=== PATIENT | male | born 1955 | race Caucasian/White ===

== ENCOUNTER → 2017-11-23 | Outpatient (CLI) | payer MEDICARE, OTHER ==
[2017-11-23 12:46] LABS: Anisocytosis Slight; HCT 37.4 % (39.0-53.0); HGB 11.9 gm/dL (13.0-17.5); Hypochromasia Slight; MCH 31.8 pg (25.0-35.0); MCHC 31.9 g/dL (31.0-37.0); MCV 99.6 fL (80.0-100.0); Macrocytosis Slight; Platelet Count 196 k/uL (150-450); RBC 3.75 m/uL (4.30-5.90); RDW 17.1 % (11.5-15.5); WBC 4.5 k/uL (3.8-10.6)
[2017-11-23 13:25] LABS: Calcium 8.2 mg/dL (8.4-10.2); Potassium 4.5 mmol/L (3.5-5.1)
== END | disposition home or self-care (01) ==
LOC: LABWHC1 11:47
PROVIDERS: ATTEND Internal Medicine Clinical Cardiac Electrophysiology
DX: I48.92 Unspecified atrial flutter (principal); I45.10 Unspecified right bundle-branch block; I25.5 Ischemic cardiomyopathy
CPT/HCPCS: 36415; 80048; 85027

== ENCOUNTER 2017-12-06 13:52 | Day surgery (SDC) | payer MEDICARE, OTHER ==
[2017-11-25 15:05] VITALS: BMI 35.2
[2017-12-06] MEDS ORDERED: ceFAZolin 1,000 MG in SODIUM CHLORIDE 0.9% IRRIGATIO 250 ML IRRIGATION ONE (14:30)
[2017-12-06] MEDS ORDERED: ceFAZolin IN SWFI 2 GM/20 ML SYRINGE IVP ONE (14:35)
[2017-12-06] MEDS: SODIUM CHLORIDE 0.9% 1,000 ML IV SCH ×4 (14:40→20:11)
[2017-12-06 14:50] LABS: Glucose,Whole Blood 158 mg/dL (75-99)
[2017-12-06] MEDS ORDERED: IOPAMIDOL-370 50ML BTL INJ ONE (15:12)
[2017-12-06] MEDS ORDERED: fentaNYL (PF) 50 MCG/ML 2 ML AMP ONE (16:54)
[2017-12-06] MEDS ORDERED: PROPOFOL 10 MG/ML 20 ML VIAL IV ONE (16:54)
[2017-12-06] MEDS ORDERED: MIDAZOLAM 2 MG/2 ML VIAL ONE (16:54)
[2017-12-06] MEDS ORDERED: LIDOCAINE 1% INJ 10MG/ML (20 ML MDV) ONE (17:25)
[2017-12-06] MEDS ORDERED: LIDOCAINE 1% INJ 10MG/ML (20 ML MDV) SQ ONE ×2 (17:41→17:46)
[2017-12-06] MEDS ORDERED: ACETAMINOPHEN IV (For NPO) 1,000 MG in EMPTY BAG 1 BAG IVPB ONE (19:02)
[2017-12-06] MEDS ORDERED: ACETAMINOPHEN TAB 325 MG TAB PO PRN (19:02)
[2017-12-06] MEDS ORDERED: HYDROcodone/APAP 5-325MG 1 EACH TAB PO PRN (19:02)
--- NOTE | 2017-12-06 19:40 | CE ---
CARDIAC ELECTROPHYSIOLOGY REPORT This is a 62-year-old male patient who has severe ischemic cardiomyopathy, status post coronary artery bypass grafting for multi-vessel coronary artery disease, old ID, hypertension, right bundle branch block, permanent atrial fibrillation, dyslipidemia and chronic kidney disease, on dialysis with failed screening test for subcutaneous ICD and was brought in for a right-sided ICD implant since he has a functioning AV fistula for dialysis in the left arm. The patient was brought to the EP lab in a fasting state. Written informed consent was obtained prior to the procedure. The right pectoral area was prepped and draped as per protocol. Lidocaine 1% was used for local anesthesia. A 4 cm incision was made parallel to the deltopectoral groove, about 1.5 cm medial to it. The incision was carried down to the level of the pectoralis muscle. A subfascial pocket was made. Hemostasis was assured. The right axillary vein was accessed at a single point, and via appropriate-sized introducer sheath, a Medtronic ICD lead was positioned. This was an model number 6935, 55 cm in length and serial number [id number]. It was implanted in the RV apex. R-waves 7 mV. Pacing impedance 960 ohms. Pacing threshold 0.8 V at 0.5 milliseconds. Ten-volt test was negative. The lead was secured to the underlying pectoralis fascia using 2 non-absorbable sutures. The pocket was irrigated with antibiotic solution. Leads were connected to the generator (Medtronic ICD Visia [id number], model number [id number], serial number [id number]). The leads and the generator were then placed in the subfascial pocket. The wound was closed in 3 layers and dressed per protocol. RESULT: Successful single-chamber an ICD implantation for primary prevention of sudden cardiac in this gentleman with class 2 CHF, permanent atrial fibrillation, severe ischemic cardiomyopathy, multi-vessel coronary artery disease, status post coronary artery bypass grafting, history of myocardial infarction in the past and on dialysis, and an underlying right bundle branch block pattern. The patient tolerated the procedure well without any acute complications. MMODL / IJN: [id number] /
--- NOTE | 2017-12-06 19:46 | CE ---
CARDIAC ELECTROPHYSIOLOGY REPORT To: Dr. Sanders Re: Angel Rodas (53) Dear Dr. Sanders, Mr. Angel Rodas underwent single-chamber ICD implantation for primary prevention of sudden cardiac . He also has permanent atrial fibrillation and it appears that he is on rivaroxaban. In view of his advanced kidney disease and since he is on dialysis, Coumadin would be a safer option than the current newer agents. In the near future, once brexiban is released, this would be an option. There is also some preliminary data on Eliquis and dialysis, but this is fairly recent. Thank you for entrusting me with the care of your patient. Warm regards. Sincerely, Gunner AMEZCUA / GERARD: [id number] /
[2017-12-06 19:48] VITALS: RESP 16
[2017-12-06] MEDS: LACTATED RINGERS 1,000 ML IV SCH (20:11)
[2017-12-06 20:35] LABS: Glucose,Whole Blood 150 mg/dL (75-99)
[2017-12-06] MEDS: FUROSEMIDE 20 MG TAB PO SCH (21:27)
[2017-12-06] MEDS: INSULN ASP PRT/INSULIN ASPART 100 UNIT/ML 10 ML VIAL SQ SCH (22:11)
[2017-12-07] MEDS: SODIUM CHLORIDE 0.9% 1,000 ML IV SCH ×2 (05:20)
[2017-12-07] MEDS: ceFAZolin IN SWFI 2 GM/20 ML SYRINGE IVP SCH ×4 (05:20→17:46)
[2017-12-07] MEDS: LACTATED RINGERS 1,000 ML IV SCH (05:21)
[2017-12-07] MEDS ORDERED: LEVOTHYROXINE 100 MCG TAB PO SCH (06:30)
[2017-12-07 06:46] LABS: Glucose,Whole Blood 96 mg/dL (75-99)
--- NOTE | 2017-12-07 08:16 | XR ---
EXAMINATION TYPE: XR chest 2V DATE OF EXAM: 12/07/2017 COMPARISON: NONE HISTORY: Lead placement check. Status post pacemaker placement. TECHNIQUE: Frontal and lateral views of the chest are obtained. FINDINGS: There is single lead pacemaker/AICD terminating in right ventricle. Lateral view is subopti mal due to upper extremity overlapping anterior lung li. Post CABG changes with mediastinal clips and sternal wires is present. There is chronic parenchymal change without suspicious focal air spac e opacity, pleural effusion, or pneumothorax seen. The cardiac silhouette size is enlarged. The os seous structures are intact. IMPRESSION: New single lead pacemaker/AICD terminating in right ventricle. Chronic changes and cardi omegaly without suspicious acute pulmonary process.
[2017-12-07] MEDS ORDERED: LENALIDOMIDE 2.5 MG PO SCH (09:00)
[2017-12-07] MEDS ORDERED: RIVAROXABAN 15 MG TAB PO SCH (09:00)
[2017-12-07] MEDS ORDERED: FAMOTIDINE 20 MG TAB PO SCH (09:00)
[2017-12-07] MEDS ORDERED: FLUoxetine HCL 20 MG CAP PO SCH (09:00)
[2017-12-07] MEDS ORDERED: METOPROLOL SUCCINATE (ER) 100 MG TAB.ER.24H PO SCH (09:00)
[2017-12-07] MEDS ORDERED: ACYCLOVIR 200 MG CAP PO SCH (09:00)
[2017-12-07] MEDS ORDERED: ALLOPURINOL 100 MG TAB PO SCH (09:00)
[2017-12-07] MEDS: FUROSEMIDE 20 MG TAB PO SCH ×2 (09:06→17:45)
[2017-12-07] MEDS: INSULN ASP PRT/INSULIN ASPART 100 UNIT/ML 10 ML VIAL SQ SCH (09:06)
--- NOTE | 2017-12-07 12:28 | P.DS ---
Providers Attending physician: Gunner Young Primary care physician: Stated None Hospital Course: Mr. Rodas is doing well. He denies any chest discomfort no undue shortness of breath no dizziness lightheadedness or palpitations he is lying comfortably in bed and he is walking around the hallways. His vitals are stable He is afebrile 98.2F pulse rate is in the 80s and 90s irregular blood pressure 122/72 mmHg Breath sounds are equal bilaterally no rhonchi no crackles ICD site on the right side is healing well Heart sounds S1 and S2 are normal but irregular no murmurs Abdomen soft Extended is warm no edema Impression Status post single chamber ICD implantation right-sided implant Patient has a left-sided AV fistula for dialysis he has chronic kidney disease and is on dialysis Ischemic cardio myopathy chronic LV systolic dysfunction ejection fraction severely reduced Unable to tolerate lex inhibitors and spironolactone on account of potassium problems and kidney failure On high dose long-acting beta blockers for cardiac myopathy Coronary artery bypass grafting in the past Old NE CHF class II Right bundle-branch block, permanent atrial fibrillation Suggest Continue current medications preoperatively consider switching to Coumadin from Rivaroxaban and a letter was sent to his primary care physician He may go home today after completion of IV antibiotics. They will device was interrogated R waves range from 2.5-4 mV pacing threshold is excellent. Chest x -ray was reviewed On the device clinic in 5 days Plan - Discharge Summary Discharge Rx Participant: Yes New Discharge Prescriptions: No Action Rivaroxaban [Xarelto] 15 mg PO DAILY Lenalidomide [Revlimid] 2.5 mg PO DAILY Allopurinol [Zyloprim] 100 mg PO DAILY RX: Acyclovir 400 mg PO DAILY FLUoxetine HCL [PROzac] 20 mg PO DAILY Amiodarone HCl [Pacerone] 200 mg PO DAILY Ranitidine HCl [Zantac] 150 mg PO DAILY Metoprolol Succinate [Toprol XL] 200 mg PO DAILY Levothyroxine Sodium [Synthroid] 200 mcg PO DAILY Furosemide [Lasix] 20 mg PO BID Insuln Asp Prt/Insulin Aspart [NovoLOG MIX 70-30 VIAL] 60 unit SQ BID Discharge Medication List Allopurinol [Zyloprim] 100 mg PO DAILY 11/25/17 [History] Amiodarone HCl [Pacerone] 200 mg PO DAILY 11/25/17 [History] FLUoxetine HCL [PROzac] 20 mg PO DAILY 11/25/17 [History] Furosemide [Lasix] 20 mg PO BID 11/25/17 [History] Insuln Asp Prt/Insulin Aspart [NovoLOG MIX 70-30 VIAL] 60 unit SQ BID 11/25/17 [ History] Lenalidomide [Revlimid] 2.5 mg PO DAILY 11/25/17 [History] Levothyroxine Sodium [Synthroid] 200 mcg PO DAILY 11/25/17 [History] Metoprolol Succinate [Toprol XL] 200 mg PO DAILY 11/25/17 [History] RX: Acyclovir 400 mg PO DAILY 11/25/17 [History] Ranitidine HCl [Zantac] 150 mg PO DAILY 11/25/17 [History] Rivaroxaban [Xarelto] 15 mg PO DAILY 11/25/17 [History] Follow up Appointment(s)/Referral(s): Gunner Young MD [STAFF PHYSICIAN] - 1 Week
[2017-12-07 12:34] LABS: Glucose,Whole Blood 236 mg/dL (75-99)
[2017-12-07 15:27] VITALS: BP 116/75; PULSE 75; TEMP 97.9
[2017-12-07 17:23] LABS: Glucose,Whole Blood 171 mg/dL (75-99)
[2017-12-07 22:53] LABS: Hemoglobin A1C 7.1 % (4.0-6.0)
== END 2017-12-07 19:17 | disposition home or self-care (01) ==
LOC: CATHEP 13:52 → 3OBS 18:45 → CATHEP 12-07 19:17
PROVIDERS: ATTEND Internal Medicine Clinical Cardiac Electrophysiology
DX: I25.5 Ischemic cardiomyopathy (principal); Z00.6 Encounter for examination for normal comparison and control in clinical research program; I13.2 Hypertensive heart and chronic kidney disease with heart failure and with stage 5 chronic kidney disease, or end stage renal disease; I50.22 Chronic systolic (congestive) heart failure; N18.5 Chronic kidney disease, stage 5; E11.22 Type 2 diabetes mellitus with diabetic chronic kidney disease; Z99.2 Dependence on renal dialysis; I25.10 Atherosclerotic heart disease of native coronary artery without angina pectoris; Z95.1 Presence of aortocoronary bypass graft; I25.2 Old myocardial infarction; I45.10 Unspecified right bundle-branch block; E78.5 Hyperlipidemia, unspecified; M10.9 Gout, unspecified; I48.2 Chronic atrial fibrillation; C90.01 Multiple myeloma in remission; I48.92 Unspecified atrial flutter; E89.0 Postprocedural hypothyroidism; Z82.49 Family history of ischemic heart disease and other diseases of the circulatory system; Z79.01 Long term (current) use of anticoagulants; Z79.890 Hormone replacement therapy; Z79.4 Long term (current) use of insulin; Z79.899 Other long term (current) drug therapy; Z87.891 Personal history of nicotine dependence
CPT/HCPCS: 33249; 83036; 71046; C1892; C1895; C1769; C1722; J2250; J0690 ×3; J2001; J3010; J2704; Q9967

== ENCOUNTER → 2018-03-13 | Day surgery (SDC) | payer MEDICARE, OTHER ==
[2018-03-09 14:11] VITALS: BMI 35.6
[~2018-03-13] MED LIST: INSULIN ASPART 100 UNIT/ML 1 ML 10 ML VIAL SQ SCH; LACTATED RINGERS 1,000 ML IV SCH; LIDOCAINE 1% INJ 10MG/ML (20 ML MDV) ONE; PROPOFOL 10 MG/ML 20 ML VIAL IV ONE; SODIUM CHLORIDE 0.9% 1,000 ML IV SCH; SODIUM CHLORIDE 0.9% 250 ML IV ONE
[2018-03-13 10:56] VITALS: RESP 18; TEMP 97.6
[2018-03-13 11:12] LABS: Glucose,Whole Blood 244 mg/dL (75-99)
[2018-03-13 11:55] LABS: Calcium 8.7 mg/dL (8.4-10.2); Potassium 4.1 mmol/L (3.5-5.1)
--- NOTE | 2018-03-13 12:28 | P.PCN ---
Preoperative Diagnosis: Diagnosis Cardio myopathy status post single chamber ICD Medtronic R waves 2.3 mV in the bipolar mode DFT testing and anesthesia Shock and T wave protocol was used to induce ventricular fibrillation. This was adequately and appropriately detected at least sensitivity with 2 dropouts and successfully internally defibrillated with 10 J shock. Charge time of 2 seconds shocking impedance 77 ohms no post shock noise ICD interrogation with reprogramming pacing impedance 646 ohms. RV coil impedance 75 ohms. Pacing threshold 0.5 V at 0.4 ms. R waves 2.3 mV ICD was reprogrammed. Appropriate antitachycardia pacing cardioversion defibrillations reprogrammed. First cardioversion at 10 J first he fibrillation at 20 J long detection intervals Patient tolerance the procedure well without any acute complications Disposition: same day
[2018-03-13 14:09] VITALS: BP 105/66; PULSE 88
== END | disposition home or self-care (01) ==
LOC: CATHEP 10:28
PROVIDERS: ATTEND Internal Medicine Clinical Cardiac Electrophysiology
DX: I25.5 Ischemic cardiomyopathy (principal); I25.10 Atherosclerotic heart disease of native coronary artery without angina pectoris; I13.2 Hypertensive heart and chronic kidney disease with heart failure and with stage 5 chronic kidney disease, or end stage renal disease; N18.5 Chronic kidney disease, stage 5; I50.22 Chronic systolic (congestive) heart failure; Z87.891 Personal history of nicotine dependence; I45.10 Unspecified right bundle-branch block; I48.1 Persistent atrial fibrillation; Z95.1 Presence of aortocoronary bypass graft; E78.5 Hyperlipidemia, unspecified; E11.9 Type 2 diabetes mellitus without complications; C90.01 Multiple myeloma in remission; Z79.01 Long term (current) use of anticoagulants; Z79.890 Hormone replacement therapy; Z79.899 Other long term (current) drug therapy; Z79.4 Long term (current) use of insulin
CPT/HCPCS: 93642; 80048; J2001; J2704

== ENCOUNTER → 2019-07-27 | Day surgery (SDC) | payer MEDICARE, BC ==
[2019-07-25 16:23] VITALS: BMI 31.1
[~2019-07-27] MED LIST changes: -INSULIN ASPART 100 UNIT/ML 1 ML 10 ML VIAL SQ SCH; +IOPAMIDOL-250 100ML BTL IV ONE; -LACTATED RINGERS 1,000 ML IV SCH; -LIDOCAINE 1% INJ 10MG/ML (20 ML MDV) ONE; +LIDOCAINE 1% INJ 10MG/ML (20 ML MDV) SQ ONE; -PROPOFOL 10 MG/ML 20 ML VIAL IV ONE; -SODIUM CHLORIDE 0.9% 1,000 ML IV SCH; -SODIUM CHLORIDE 0.9% 250 ML IV ONE
[2019-07-27 12:02] VITALS: BP 132/60; PULSE 78; RESP 18; TEMP 97.8
[2019-07-27 12:02] LABS: Glucose,Whole Blood 192 mg/dL (75-99)
--- NOTE | 2019-07-27 14:04 | P.OP ---
Date of Procedure: 07/27/19 Description of Procedure: Preoperative diagnosis: [End-stage renal disease, low flow fistula] Postoperative diagnosis: Same, no evidence of stenosis, normal-appearing fistula Procedure: [Ultrasound-guided left upper extremity fistula access, left upper extremity fistulogram, left upper extremity radial artery angiogram] Surgeon: Tammi Parry D.O. EBL: [10 mL] IV fluids: [Not measured] Urine output: [Not measured] Drains: [None] Complications: [None] Condition: [Stable] Operative indication and findings: The patient is a 64-year-old male with end- stage renal disease has been using a left upper extremity fistula, radiocephalic, for approximately 1 year. It has been functioning well although at times during dialysis the machine beats and he is found to have low pressures through his fistula itself. A preprocedural ultrasound was performed revealing no obvious areas of stenosis or narrowing, he continued to have issues and was sent back to the office therefore this time a fistulogram is performed] Procedure in detail: [The patient was taken to the special suite and placed in supine position. The left upper extremity was prepped and draped in usual sterile fashion. An ultrasound was utilized and the left upper Ollie a fistula was identified. The skin was anesthetized and a puncture needle was used to access the fistula. Seldinger technique was used to place a micropuncture sheath. A venogram of the outflow was performed revealing no evidence obvious stenosis, at the level of the elbow where the bifurcation and median cubital vein exist there were multiple branch vessels. Seldinger technique was used and a 5-Indian sheath was placed a Glidewire and catheter were then used to access the radial artery. An angiogram was performed revealing no evidence of stenosis. The ulnar artery was relatively significantly calcified just upon image. There was good flow through the palmar arch. There was adequate clearance without any significant area of stenosis. Clearance through the fistula itself was brisk. Guidewires and catheters were removed. The sheath was removed and the puncture site was closed with a 3-0 nylon. Dressings were placed. The patient was allowed to move back to the cart and back to his discharge area. We'll follow back up with him in 6 months time] Plan - Discharge Summary Discharge Rx Participant: No New Discharge Prescriptions: No Action Lenalidomide [Revlimid] 2.5 mg PO DAILY FLUoxetine HCL [PROzac] 20 mg PO DAILY Ranitidine HCl [Zantac] 150 mg PO DAILY Levothyroxine Sodium [Synthroid] 200 mcg PO DAILY Furosemide [Lasix] 20 mg PO BID Insuln Asp Prt/Insulin Aspart [NovoLOG MIX 70-30 VIAL] 60 unit SQ BID Metoprolol Succinate [Toprol XL] 50 mg PO DAILY Apixaban [Eliquis] 5 mg PO BID Potassium Chloride [K-Tab ER] 20 meq PO DAILY Febuxostat [Uloric] 40 mg PO DAILY Discharge Medication List FLUoxetine HCL [PROzac] 20 mg PO DAILY 11/25/17 [History] Furosemide [Lasix] 20 mg PO BID 11/25/17 [History] Insuln Asp Prt/Insulin Aspart [NovoLOG MIX 70-30 VIAL] 60 unit SQ BID 11/25/17 [History] Lenalidomide [Revlimid] 2.5 mg PO DAILY 11/25/17 [History] Levothyroxine Sodium [Synthroid] 200 mcg PO DAILY 11/25/17 [History] Ranitidine HCl [Zantac] 150 mg PO DAILY 11/25/17 [History] Apixaban [Eliquis] 5 mg PO BID 07/16/19 [History] Febuxostat [Uloric] 40 mg PO DAILY 07/16/19 [History] Metoprolol Succinate [Toprol XL] 50 mg PO DAILY 07/16/19 [History] Potassium Chloride [K-Tab ER] 20 meq PO DAILY 07/16/19 [History] Patient Instructions/Handouts: Fistulogram (DC) Activity/Diet/Wound Care/Special Instructions: No restrictions. Return to dialysis as scheduled. Dr. Parry as needed. Discharge Disposition: HOME SELF-CARE
--- NOTE | 2019-07-27 16:27 | IR ---
EXAMINATION TYPE: IR venogram upper ext LT DATE OF EXAM: 07/27/2019 CLINICAL HISTORY: Failed dialysis. TECHNIQUE: Fluoroscopy. COMPARISON: None. FINDINGS: Fluoroscopic guidance was provided during left upper extremity fistulogram procedure perfo rmed by Dr. Parry. A total of 120 seconds of fluoroscopic time was utilized during the procedure and several cine images R acquired. Please refer to procedure note for further details as I was not pres ent or performed procedure. IMPRESSION: As Above.
== END | disposition home or self-care (01) ==
LOC: OR 11:28
PROVIDERS: ATTEND Surgery
DX: T82.590A Other mechanical complication of surgically created arteriovenous fistula, initial encounter (principal); I70.8 Atherosclerosis of other arteries; N18.6 End stage renal disease; Z99.2 Dependence on renal dialysis; Z87.891 Personal history of nicotine dependence; Z79.4 Long term (current) use of insulin; Z79.01 Long term (current) use of anticoagulants; Z79.890 Hormone replacement therapy; Z79.899 Other long term (current) drug therapy
CPT/HCPCS: 36901; 76937; C1894; C1769 ×4; J2001; Q9966

== ENCOUNTER → 2020-10-17 | Outpatient (CLI) | payer MEDICARE, BC ==
--- NOTE | 2020-10-17 15:41 | US ---
EXAMINATION TYPE: US liver DATE OF EXAM: 10/17/2020 COMPARISON: NONE CLINICAL HISTORY: R94.5 abnormal liver function study. Abnormal LFT's EXAM MEASUREMENTS: Liver Length: 17.8 cm Gallbladder Wall: 0.2 cm CBD: 0.4 cm Right Kidney: 8.1 x 3.7 x 4.0 cm Pancreas: Obscured by bowel gas Liver: Heterogeneous Gallbladder: wnl Evidence for sonographic Triplett's sign: No CBD: wnl Right Kidney: Small in size, pt is in known renal failure and on dialysis IMPRESSION: 1. The liver parenchyma is heterogeneous. There may be minimal surface contour nodularity. Consider hepatitis versus early cirrhosis. A CT or MRI of the abdomen using liver protocol would be helpful. N o discrete hepatic masses seen on this study. The right lobe of the liver measures 17.8 cm. 2. No gallstones. 3. Small right kidney measuring 8.1 cm in length. The patient has known renal failure and is on dialy sis.
== END | disposition home or self-care (01) ==
LOC: RADUSWWP 08:59
PROVIDERS: ATTEND Internal Medicine Hematology & Oncology
DX: N19 Unspecified kidney failure (principal); N27.0 Small kidney, unilateral; Z99.2 Dependence on renal dialysis
CPT/HCPCS: 76705